=== PATIENT | male | born 1960 | race Caucasian/White ===

== ENCOUNTER 2018-05-22 10:57 | Observation (INO) | payer MEDICAID ==
[2018-05-22] MEDS ORDERED: ASPIRIN 81 MG CHEWABLE TAB PO ONE (11:09)
[2018-05-22] MEDS ORDERED: ASPIRIN 81 MG CHEWABLE TAB ONE (11:09)
--- NOTE | 2018-05-22 11:11 | EDPHY ---
H & P Time Seen by Provider: 05/22/18 11:00 HPI/ROS: CHIEF COMPLAINT: Chest pain HISTORY OF PRESENT ILLNESS: Patient started having symptoms around 5:00 p.m. When he was in [place] night. He was trapped up there by the snowstorm and drove down here yesterday, the symptoms went away last night. Today when he woke up he had symptoms. Describes tightness in the lower sternum just the left of midline, occasionally sharp radiation to his left arm and left side of his chest. Associated with dyspnea on exertion. No nausea vomiting, no palpitations or syncope. Of note he had a recent chest cold about 2 weeks ago with lot of coughing, improved now. REVIEW OF SYSTEMS: Eye: no change in vision ENT: no sore throat Cardiac: HPI Pulmonary: HPI no hemoptysis Abdomen: no vomiting, diarrhea, abdominal pain Musculoskeletal: No leg swelling Skin: no rash Neuro: no headache Constitutional: no fever : no urinary symptoms A comprehensive 10 point review of systems is otherwise negative aside from elements mentioned in the history of present illness. PAST MEDICAL HISTORY: Hypertension and high cholesterol Family history: Negative for venous thromboembolism, positive for myocardial infarction in their 50s in both grandfathers Social history: 30 pack year smoking history quit 1 year ago General Appearance: Alert and conversant, cooperative. Eyes: No scleral icterus. ENT, Mouth: Normal mucous membranes. Respiratory: Normal respiratory effort, breath sounds equal, occasional right- sided wheeze, speaks in full sentences. Cardiovascular: Regular rate and rhythm. Gastrointestinal: Abdomen is soft and non tender. Neurological: Alert, face symmetric, normal motor and sensory in extremities. Skin: Warm and dry, no rashes. Musculoskeletal: No peripheral edema. No calf tenderness. Psychiatric: Not agitated. Emergency Department course/MDM: Moderately high suspicion for ACS given dyspnea on exertion with chest tightness , multiple risk factors and family history. Differential diagnosis considered for chest pain including but not limited to myocardial ischemia, aortic dissection, pericarditis, pulmonary embolus, chest wall pain, pleural inflammation and pulmonary infectious causes. Chest symptoms are less than 1 or 2/10 after a nitroglycerin by EMS. Oral aspirin, chest x-ray troponin and D-dimer. HEART score 4: 1 age, 1 history, 3 risk factors. 1222: WBC 8, hematocrit 53, D-dimer pending. Results discussed, admit for further risk stratification at 12:50 p.m.. Discussed with Robert; it Jaren. Smoking Status: Former smoker Constitutional: Initial Vital Signs Temperature (C) 37 C 05/22/18 11:02 Heart Rate 64 05/22/18 11:02 Respiratory Rate 15 05/22/18 11:02 Blood Pressure 147/101 H 05/22/18 11:02 O2 Sat (%) 98 05/22/18 11:02 O2 Delivery Mode Room Air Allergies/Adverse Reactions: No Known Allergies Allergy (Verified 05/22/18 13:39) Home Medications: Medication Instructions Recorded FLUoxetine [Prozac 20 MG (*)] 40 mg PO DAILY 05/22/18 Glucosamine Sulfate [Glucosamine 500 mg PO DAILY 05/22/18 Sulfate 500 MG (*)] Metoprolol Tartrate [Lopressor 50 50 mg PO DAILY 05/22/18 mg (*)] Multivitamins [Multivitamin (*)] 1 each PO DAILY 05/22/18 Pravastatin Sodium 40 mg PO DAILY 05/22/18 traZODone [traZODONE 100MG (*)] 100 mg PO HS 05/22/18 Medical Decision Making - Diagnostics EKG Interpretation: 12-lead EKG interpreted by me; official reading is in computer system. My interpretation is sinus rhythm rate 62 no ischemic changes. Imaging Results: Imaging Impressions Chest X-Ray 05/22/18 11:09 Impression: No acute findings in the chest. Imaging: I viewed and interpreted images myself Consult/Admit Bed Type: [place] [id number] - Data Points Laboratory Results: Laboratory Results 05/22/18 11:09 05/22/18 05/22/18 05/22/18 11:10 11:09 11:09 WBC RBC Hgb Hct MCV MCH MCHC RDW Plt Count MPV Neut % (Auto) Lymph % (Auto) Traill % (Auto) Eos % (Auto) Baso % (Auto) Nucleat RBC Rel Count Absolute Neuts (auto) Absolute Lymphs (auto) Absolute Monos (auto) Absolute Eos (auto) Absolute Basos (auto) Absolute Nucleated RBC Immature Gran % Immature Gran # D-Dimer 0.12 ug/mLFEU ug/mLFEU (0.00-0.50) Sodium 138 mEq/L mEq/L (135-145) Potassium 3.7 mEq/L mEq/L (3.5-5.2) Chloride 105 mEq/L mEq/L (97-110) Carbon Dioxide 23 mEq/l mEq/l (22-31) Anion Gap 10 mEq/L mEq/L (6-14) BUN 13 mg/dL mg/dL (7-23) Creatinine 1.0 mg/dL mg/dL (0.7-1.3) Estimated GFR > 60 Glucose 146 mg/dL H mg/dL (70-100) Calcium 10.6 mg/dL H mg/dL (8.5-10.4) POC Troponin I 0.00 ng/mL ng/mL (0.00-0.08) 05/22/18 11:09 WBC Pending RBC Pending Hgb Pending Hct Pending MCV Pending MCH Pending MCHC Pending RDW Pending Plt Count Pending MPV Pending Neut % (Auto) Pending Lymph % (Auto) Pending Traill % (Auto) Pending Eos % (Auto) Pending Baso % (Auto) Pending Nucleat RBC Rel Count Pending Absolute Neuts (auto) Pending Absolute Lymphs (auto) Pending Absolute Monos (auto) Pending Absolute Eos (auto) Pending Absolute Basos (auto) Pending Absolute Nucleated RBC Pending Immature Gran % Pending Immature Gran # Pending D-Dimer Sodium Potassium Chloride Carbon Dioxide Anion Gap BUN Creatinine Estimated GFR Glucose Calcium POC Troponin I Medications Given: Discontinued Medications Aspirin (Aspirin) 324 mg PO EDNOW ONE Stop: 05/22/18 11:10 Last Admin: 05/22/18 11:11 Dose: 324 mg Point of Care Test Results: Chemistry 05/22/18 11:10 POC Troponin I 0.00 ng/mL ng/mL (0.00-0.08) Departure - Departure Disposition: [facility] Inpatient Acute Clinical Impression: Chest pain Qualifiers: Chest pain type: unspecified Qualified Code(s): R07.9 - Chest pain, unspecified Condition: Good
--- NOTE | 2018-05-22 11:14 | CPEKG ---
Test Reason : OPEN Blood Pressure : / mmHG Vent. Rate : 062 BPM Atrial Rate : 062 BPM P-R Int : 141 ms QRS Dur : 093 ms QT Int : 406 ms P-R-T Axes : 060 076 057 degrees QTc Int : 413 ms Sinus rhythm Confirmed by Topher Bronson ([id number]) on 05/22/2018 11:14:07 AM Referred By: Topher Bronson Confirmed By:Topher Bronson
[2018-05-22] MEDS ORDERED: NITROGLYCERIN 2% 1 GM PACKET TP ONE (13:45)
[2018-05-22 14:23] LABS: PLATELET COUNT 196 10^3/uL (150-400)
--- NOTE | 2018-05-22 14:30 | GHP ---
[f rep st] HISTORY AND PHYSICAL DATE OF ADMISSION: 05/22/2018 CHIEF COMPLAINT: Chest pain. HISTORY OF PRESENT ILLNESS: This is a 58-year-old male with a history of hypertension, hyperlipidemi a, who presents with chest pain. This started 2 days ago when he was in [place]. However, he got s nowed in. It was associated with a significant rise in his blood pressure to about 176/100. Describ ed as substernal tightness. It did not go away. Thus, he drove down. It continued today. He jacob d the nurse line, who recommended that he take an ambulance to the ED, which he did. In the ambulanc e, he got a nitro pill, which improved the chest pain, though he is still having a minor amount of di scomfort. He notes that he got up an upper respiratory illness about 2 weeks ago. Since then, he henning s been having exertional symptoms that are very reproducible, described as substernal tightness. The y have caused him to limit his activity. He has never seen a ventilator specialist. He had a stress test in his 20s, when he was having ulcerative problems. He believes this was negative. PAST MEDICAL/SURGICAL HISTORY: 1. Hypertension. 2. Hyperlipidemia. 3. Depression. 4. Multiple orthopedic surgeries. MEDICATIONS: Please see medication reconciliation. ALLERGIES: No known drug allergies. FAMILY HISTORY: Both of his grandparents had an [place] and in their 50s. SOCIAL HISTORY: He works as a simeon. He smokes, although he quit 2 weeks ago when he had the up per respiratory illness. He lives in [place]. REVIEW OF SYSTEMS: 10-point review of systems is conducted and is negative except per HPI. PHYSICAL EXAM: VITAL SIGNS: Blood pressure 130/87, heart rate 63, respiration rate 18, saturating a t 96% on room air. Temperature 36.9. GENERAL: The patient is a pleasant man, who is resting comfor tably. No acute distress. HEENT: Shows him to be normocephalic, atraumatic. CARDIOVASCULAR: Regu lar rate and rhythm. No murmurs, rubs, or gallops. PULMONARY: Lungs clear to auscultation bilatera lly. ABDOMEN: Soft, nontender, nondistended. SKIN: Shows no rash. : Shows no Diaz. NEUROLOG IC: Shows him to be alert and oriented x3. He is moving all extremities. PSYCHIATRIC: Shows juventino l mood and affect. LABS: CBC is pending. D-dimer 0.1, basic metabolic panel is normal. Calcium is 10.6. Initial trop onin is negative. DATA: 1. Discussed with Ramona Clark. Will admit to PCU. 2. Electrocardiogram, which I personally viewed and interpreted, shows question of diffuse ST elevat ions, those these are mild. 3. Chest x-ray is negative. IMPRESSION AND PLAN: 1. Chest pain. History is concerning for unstable angina. Also consider pericarditis given recent viral illness and EKG findings. Discussed with cardiology, who will consult and likely perform angio gram in the morning. We will place nitroglycerin paste on him now as he still has some mild discomfo rt, and I believe his blood pressure will tolerate it. We will continue his metoprolol. We will yasmany e him n.p.o. pending Cardiology evaluation. 2. Hypertension: Continue his medications. 3. Hyperlipidemia: Pravastatin. 4. Depression: Prozac. /[id number]/MODL
[2018-05-22] MEDS ORDERED: ACETAMINOPHEN 325 MG TAB PO PRN (16:10)
[2018-05-22] MEDS ORDERED: TEMAZEPAM 15 MG CAP PO PRN (16:10)
--- NOTE | 2018-05-22 16:56 | GCON ---
[f rep st] CONSULTATION CARDIAC CONSULTATION DATE OF CONSULTATION: 05/22/2018 CHIEF COMPLAINT: Chest pain and shortness of breath. HISTORY OF PRESENT ILLNESS: The patient is a 58-year-old male with a history of hypertension, hyperl ipidemia, ongoing tobacco use, and family history of premature coronary artery disease who presented to the hospital complaining of chest pain and shortness of breath. He works as a simeon, and 4 to 6 months ago, he noticed exertional chest pressure and shortness of breath. Two weeks ago, he devel oped an upper respiratory infection, and since that time, he has had fairly persistent chest tightnes s, which waxes and wanes. It is worse with exertion and associated with shortness of breath and diap horesis. On admission to the hospital, his troponin was negative, but his EKG shows hyperacute T-wav es. He is currently complaining of 4/10 chest discomfort. Two nitroglycerin did improve his pain ea rlier today. D-dimer is negative and chest x-ray is negative for acute cardiopulmonary disease. PAST MEDICAL HISTORY: Hypertension, hyperlipidemia. PAST SURGICAL HISTORY: He has had multiple orthopedic surgeries. FAMILY HISTORY: He has a strong family history of premature coronary artery disease. His paternal g randfather, great grandfather, and maternal grandfather, all had cardiac events in their early 50s. His father had a valve replacement and pacemaker placed. SOCIAL HISTORY: He has a history of tobacco use and quit 2 weeks ago. Prior to that, he was smoking 1 pack of cigarettes a week. He is currently accompanied by his . He works as a simeon. HOME MEDICATIONS: Pravastatin 40 mg daily, Lopressor 50 mg daily, multivitamin daily, glucosamine 50 0 mg daily, Prozac 40 mg daily, trazodone 100 mg p.r.n. ALLERGIES: No known drug allergies. REVIEW OF SYSTEMS: Ten-point review of systems is negative, except what is stated in the H and P. PHYSICAL EXAMINATION: GENERAL: Patient appears in no acute distress. VITAL SIGNS: Blood pressure 123/88, heart rate 61, oxygen saturation 98% on room air, afebrile. HEENT: Within normal limits. N JAMES: No carotid bruits or JVD present. LUNGS: Clear to auscultation. No wheezes, rhonchi, or crac kles auscultated. CARDIAC: Regular rate and rhythm, without any murmurs, rubs, or gallops appreciat ed. ABDOMEN: Soft, nontender, nondistended. EXTREMITIES: Palpable pulses bilaterally without any evidence of edema. NEUROLOGIC: Nonfocal. PSYCHIATRIC: Mood and affect appropriate. SKIN: No obv ious rashes or ecchymosis identified. LABORATORY: Troponin negative x1. Calcium 10.6. BMP within normal limits. D-dimer 0.12. WBC 8.03 , hemoglobin 18.1, hematocrit 53.8, platelets 196. DIAGNOSTIC STUDIES: Chest x-ray was negative for acute cardiopulmonary disease. EKG: Normal sinus rhythm with hyperacute T-waves in the anterior leads. ASSESSMENT: The patient is a 58-year-old male with a history of hypertension, hyperlipidemia, ongoin g tobacco use, and family history of coronary artery disease, who presents with acute coronary syndro me. PLAN: The patient has multiple risk factors for coronary artery disease and presents with symptoms c oncerning for acute coronary syndrome. His EKG is abnormal with hyperacute T-waves in the anterior l monica. His initial troponin is negative, but he is having 4/10 chest discomfort. The patient was dis cussed with Dr. Eastman who will place on nitroglycerin paste. We will also plan to cycle troponins and plan for an angiogram tomorrow morning. The risks, benefits and alternatives of the procedure henning ve been discussed with the patient and he would like to proceed. /[id number]/MODL
[2018-05-22] MEDS ORDERED: CALCIUM CARBONATE 500 MG CHEWABLE TAB PO PRN (19:38)
[2018-05-22] MEDS ORDERED: traZODone 100 MG TAB PO PRN (21:16)
[2018-05-22] MEDS: NITROGLYCERIN 0.4 MG BTL SL PRN ×2 (22:26→22:34)
[2018-05-23 03:18] LABS: INR 0.95 (0.83-1.16); PROTIME(PATIENT) 12.3 SEC (12.0-15.0)
[2018-05-23 03:43] LABS: PLATELET COUNT 145 10^3/uL (150-400)
[2018-05-23] MEDS ORDERED: diphenhydrAMINE 25 MG CAP PO ONE (06:00)
[2018-05-23] MEDS ORDERED: FAMOTIDINE 20 MG TAB PO ONE (06:00)
[2018-05-23] MEDS ORDERED: DIAZEPAM 5 MG TAB PO ONE (06:00)
[2018-05-23] MEDS ORDERED: ASPIRIN EC 325 MG TAB PO ONE (06:00)
[2018-05-23] MEDS: NITROGLYCERIN 0.4 MG BTL SL PRN ×3 (07:54→08:16)
[2018-05-23] MEDS ORDERED: METOPROLOL TARTRATE 50 MG TAB PO SCH (09:00)
[2018-05-23] MEDS ORDERED: PRAVASTATIN SODIUM 40 MG TAB PO SCH (09:00)
[2018-05-23] MEDS ORDERED: FLUoxetine 20 MG CAP PO SCH (09:00)
[2018-05-23] MEDS ORDERED: VERAPAMIL 5 MG/2 ML VIAL ONE (10:04)
[2018-05-23] MEDS ORDERED: LIDOCAINE 1% 300 MG/30 ML SDV ONE (10:04)
[2018-05-23] MEDS ORDERED: fentaNYL 100 MCG/2 ML INJ ONE (10:04)
[2018-05-23] MEDS ORDERED: MIDAZOLAM 2 MG/2 ML VIAL ONE (10:04)
[2018-05-23] MEDS ORDERED: HEPARIN 10,000 UNIT/10 ML MDV (1,000 UNIT/ML) ONE (10:05)
[2018-05-23] MEDS ORDERED: IOPAMIDOL (ISOVUE-370) 150 ML BTL IV ONE (10:05)
--- NOTE | 2018-05-23 11:00 | PDHPUP ---
History & Physical Update H&P update statement: This history and physical update is based on an assessment of the patient which was completed after admission or registration (within 24 hours), but prior to the surgery/procedure. H&P update: H&P reviewed & patient examined, no change in patient's condition since H&P completed
--- NOTE | 2018-05-23 11:01 | PDPROPOC ---
Sedation Plan of Care Sedation Plan of Care: vital signs stable, mental status noted, patient educated of risks, benefits, alternatives, patient can tolerate sedation ASA Classification: ASA 3 Planned drugs: fentanyl, midazolam Mallampati Score: Class 2 Mallampati Reference Image: Patient passed 3-3-2 rule?: Yes
[2018-05-23] MEDS ORDERED: ATROPINE SULFATE 1 MG/10 ML SYR IVP PRN (11:25)
[2018-05-23] MEDS ORDERED: ONDANSETRON 4 MG/2 ML VIAL IVP PRN (11:25)
--- NOTE | 2018-05-23 11:46 | PDDXCAT ---
Diagnostic Cath Note - . Date: 05/23/18 Cnc Router Operator: Arie Indication: CCC Class III and IV angina on medical treatment - Procedure Access: left wrist Procedure: left heart catheterization, coronary angiography, left ventriculogram - Materials Left Heart Cath size: 5F Left Heart Cath materials: standard multipack (JL4, JR4, pigtail) - Findings-Left Heart Catheterization LM: 7 mm in size with ИВАН III flow and trifurcates into an LAD, circumflex and ramus system. LAD: 3.5 mm in size and calcification in the LAD on cineflouroscopy consistent with underlying atherosclerosis no flow limiting stenosis. The patient has a minor muscle bridge distal the diagonal takeoff. The LAD is compressed during systole to approximally 20% for approximately 20 mm length. The principal diagonal is 3 mm in size with a 30% ostial stenosis. There is ИВАН III flow throughout. LCX: 2.5 mm in size with ИВАН III flow with no evidence of obstruction. RCA: 3.5 mm in size and is dominant giving rise to a PDA and posterolateral ventricular branches no flow limiting obstruction. Ramus: 2mm in size and free of flow limiting obstruction. LVEF: 65% without evidence of wall motion abnormality or significant mitral regurgitation. There was no gradient upon pullback across the aortic valve. The visualized portion of the thoracic aorta is normal in caliber with three sinuses of valsalva most consistent with a trileaflet aortic valve. No rhiannon aneurysm or dissection is identiifed. Wall motion: Normal wall motion. Estimated blood loss: <50ml Closure method: TR Band Assessment: The patient has salamatof vessel CAD involving the LAD and principal diagonal vessel and bifurcation of same. There is a minor muscle bridge of the LAD distal to the diagonal takeoff. There is no evidence of flow limiting obstruction and therefore stenting is not indicated. The ejection fraction and wall motion are normal and there is no evidence of mitral regurgitation or aortic stenosis. The thoracic aorta does not reveal evidence of aneurysm or dissection. Plan: The first and most important thing to do is to convince the patient to stop smoking immediately and completely and permanently. I have had a 15 minute discussion with him and his about the importance of smoking cessation. The patient needs to be on a statin based regimen to artificially drive his LDL cholesterol to less than 70mg/dl. Lifestyle measures such as diet and cardiovascular exercise should also be addressed, Intervention: NONE Patient Problems: Problems Problem Status Onset Chest pain Acute
--- NOTE | 2018-05-23 13:34 | ASMTCMCOM ---
CM Note CM Note Notes: 05/23/2018 Case Management Note Discussed pt during rounds this morning. Pt admitted for chest pain. 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 There are no therapy evals ordered today. There are no identified case management d/c needs identified d/t pt age, employment status, and independence with ADL's prior to admission. Case Management d/c poc: independent with follow up as directed. Case Management available if needs change. Date Signed: 05/23/2018 01:33 PM Electronically Signed By:Elvira Steen RN
[2018-05-23] MEDS ORDERED: IBUPROFEN 600 MG TAB PO PRN (13:44)
[2018-05-23 15:31] VITALS: BP 121/90
--- NOTE | 2018-05-23 15:47 | ASDISCHSUM ---
Discharge Information Plan Status:Home with No Needs Medically Cleared to Leave:05/23/2018 Discharge Date:05/23/2018 03:39 PM CM D/C Disposition:Home, Routine, Self-Care ADT D/C Disposition:Home, Routine, Self-Care Projected Discharge Date:05/23/2018 03:39 PM Transportation at D/C: Discharge Delay Reason: Follow-Up Date:05/23/2018 03:39 PM Discharge Slot: Final Diagnosis: Placement Information Patient Contact Information Contact Name:PRASHANTVicki Relationship: Address: Home Phone: Work Phone: City: Alternate Phone: State/IncreaseCard Code: Email: Financial Information Financial Class:Medicaid Primary Plan Desc:MED[employer] Primary Plan Number:[id number] Secondary Plan Desc: Secondary Plan Number: Assessment Information LACE LACE Length of stay for Answers: Less than 1 day current admission Acuity / Level of Answers: No Care: Did the patient have an inpatient admission? Comorbidities - select Answers: Other Notes: HTN; HLD all that apply # of Emergency department Answers: 1-2 visits in the last 6 months Social determinants Answers: Mental health diagnosis (anxiety, depression, pers onality disorders, etc.) Score: 5 Date Signed: 05/23/2018 03:46 PM Electronically Signed By:Elvira Steen RN [facility] CM Progress Note CM Note CM Note Notes: 05/23/2018 Case Management Note Discussed pt during rounds this morning. Pt admitted for chest pain. 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 There are no therapy evals ordered today. There are no identified case management d/c needs identified d/t pt age, employment status, and independence with ADL's prior to admission. Case Management d/c poc: independent with follow up as directed. Case Management available if needs change. Date Signed: 05/23/2018 01:33 PM Electronically Signed By:Elvira Steen RN Intervention Information
--- NOTE | 2018-05-23 17:58 | GDS ---
[f rep st] DISCHARGE SUMMARY DISCHARGE DIAGNOSES: 1. Chest pain. 2. Nonobstructive coronary artery disease. 3. Tobacco dependence. 4. Hypertension. 5. Hyperlipidemia. HISTORY: The patient is a 58-year-old male who developed chest pain. While in [place], he got sno wed in. Finally was able to come down to the front [place] and came directly to the emergency room. Shayy carrion had persistent chest pain despite medical treatment. He had a concerning history. So he went stra ight to cardiac catheterization. This showed nonobstructive coronary disease. No stent was placed. He will need aggressive medical management. He was counseled for smoking cessation. DISCHARGE MEDICATIONS: Please see computerized record for full detailed list. NEW MEDICATIONS: 1. Crestor 20 mg p.o. daily to be taken instead of his previous pravastatin. 2. Aspirin 81 mg p.o. daily. He will continue on metoprolol as he was prior to admission. ADDITIONAL DISCHARGE INSTRUCTIONS: 1. He was advised strongly to stop smoking. 2. He will follow up with Dr. Juan Sargent at [facility]. Patient was seen and examined by me on day of discharge. /[id number]/MODL
[2018-05-24] MEDS ORDERED: ROSUVASTATIN CALCIUM 20 MG TAB PO SCH (09:00)
--- NOTE | 2018-05-24 23:31 | CPEKG ---
Test Reason : OPEN Blood Pressure : / mmHG Vent. Rate : 068 BPM Atrial Rate : 066 BPM P-R Int : 121 ms QRS Dur : 100 ms QT Int : 407 ms P-R-T Axes : 057 078 058 degrees QTc Int : 433 ms Sinus rhythm Early R wave transition and relatively short [place] interval Confirmed by Juan Sargent ([id number]) on 05/24/2018 11:31:05 PM Referred By: Xavier Eastman Confirmed By:Juan Sargent
== END 2018-05-23 15:39 | disposition home or self-care (01) ==
LOC: F2W 15:30
PROVIDERS: ADMIT Student in an Organized Health Care Education/Training Program; ATTEND Internal Medicine
DX: I25.119 Atherosclerotic heart disease of native coronary artery with unspecified angina pectoris (principal); F32.9 Major depressive disorder, single episode, unspecified; I10 Essential (primary) hypertension; E78.5 Hyperlipidemia, unspecified; F17.210 Nicotine dependence, cigarettes, uncomplicated; Z82.49 Family history of ischemic heart disease and other diseases of the circulatory system
CPT/HCPCS: 71046; 93005; 93458; 99285; C1769; G0378; 84484-ER; J1200; J1644; J2250; J2270; J3010; Q9967